=== PATIENT | female | born 1995 | race Caucasian/White ===

== ENCOUNTER 2020-02-20 09:50 | Emergency (ER) | payer OTHER, SELFPAY ==
[~2020-02-20] VITALS: Ht 162.6 cm; Wt 98.1 kg
--- NOTE | 2020-02-20 10:35 | REP ---
Right knee series: Six views. History: Trauma. Findings: Six views right knee demonstrate normal bones, joints, and soft tissues. A normal fabella is seen. There is no evidence of fracture, subluxation or joint effusion. Impression: Negative right knee radiographs. Electronically Signed by Glenn Chapman MD 02/20/2020 10:27 A
[2020-02-20 11:33] VITALS: BP 135/77
== END 2020-02-20 11:36 | disposition home or self-care (01) ==
LOC: M ED 09:50
DX: S80.01XA Contusion of right knee, initial encounter (principal); W55.89XA Other contact with other mammals, initial encounter; Y92.099 Unspecified place in other non-institutional residence as the place of occurrence of the external cause; Y93.9 Activity, unspecified; Y99.9 Unspecified external cause status; A69.20 Lyme disease, unspecified; Z88.5 Allergy status to narcotic agent

== ENCOUNTER → 2020-07-19 | Outpatient (CLI) | payer SELFPAY | LOC: M LABSMTC 13:09 | PROVIDERS: ATTEND Pediatrics | DX: Z20.828 Contact with and (suspected) exposure to other viral communicable diseases (principal) ==

== ENCOUNTER 2020-11-08 19:37 | Emergency (ER) | payer SELFPAY ==
[~2020-11-08] VITALS: Ht 165.1 cm; Wt 100.0 kg
--- NOTE | 2020-11-08 21:09 | REPVR ---
PROCEDURE INFORMATION: Exam: XR Left Hand Exam date and time: 11/08/2020 7:51 PM Age: 25 years old Clinical indication: Injury or trauma; Other: Stepped on by cow; Crushing; Hand; Left TECHNIQUE: Imaging protocol: XR Left hand. Views: 3 or more views. COMPARISON: No relevant prior studies available. FINDINGS: Bones/joints: No acute fracture or dislocation. Soft tissues: Soft tissue swelling. IMPRESSION: No acute fracture or dislocation. Electronically signed by: Heather Espinoza On 11/08/2020 21:09:22 PM
[2020-11-08 21:32] VITALS: BP 123/87
== END 2020-11-08 22:31 | disposition home or self-care (01) ==
LOC: M ED 19:37
DX: S69.92XA Unspecified injury of left wrist, hand and finger(s), initial encounter (principal); W23.0XXA Caught, crushed, jammed, or pinched between moving objects, initial encounter; Y92.89 Other specified places as the place of occurrence of the external cause; Y93.9 Activity, unspecified; Y99.0 Civilian activity done for income or pay; A69.20 Lyme disease, unspecified; Z88.5 Allergy status to narcotic agent

== ENCOUNTER 2021-12-15 00:12 | Inpatient (IN) | payer BC, SELFPAY ==
[~2021-12-15] VITALS: Ht 162.6 cm; Wt 119.2 kg
[2021-12-15 01:16] LABS: HEMATOCRIT 40.8 % (36.0-47.0); HEMOGLOBIN 12.8 g/dl (12.0-15.5); MEAN CORPUSCULAR HEMOGLOBIN 25.1 pg (27.0-33.0); MEAN CORPUSCULAR HGB CONC 31.4 g/dl (32.0-36.5); PLATELET COUNT, AUTOMATED 289 10^3/uL (150-450); WHITE BLOOD COUNT 8.6 10^3/uL (4.0-10.0)
[2021-12-15 01:42] LABS: AMPHETAMINES LEVEL URINE NEGATIVE (NEGATIVE); BARBITURATES URINE NEGATIVE (NEGATIVE); BENZODIAZEPINES URINE NEGATIVE (NEGATIVE); CANNABINOIDS URINE NEGATIVE (NEGATIVE); COCAINE METABOLITE URINE NEGATIVE (NEGATIVE); METHADONE URINE NEGATIVE (NEGATIVE); OPIATES URINE NEGATIVE (NEGATIVE); PHENCYCLIDINE URINE NEGATIVE (NEGATIVE)
[2021-12-15 01:45] LABS: HCG, SERUM QUALITATIVE NEGATIVE (NEGATIVE)
[2021-12-15 01:54] LABS: ALBUMIN 3.9 GM/DL (3.2-5.2); ALT/SGPT 20 U/L (12-78); BILIRUBIN,DIRECT < 0.1 MG/DL (0.0-0.2); BILIRUBIN,TOTAL 0.2 MG/DL (0.2-1.0); BLOOD UREA NITROGEN 11 MG/DL (7-18); CALCIUM LEVEL 9.2 MG/DL (8.5-10.1); CARBON DIOXIDE LEVEL 29 MEQ/L (21-32); CHLORIDE LEVEL 105 MEQ/L (98-107); CREATININE FOR GFR 0.82 MG/DL (0.55-1.30); ETHYL ALCOHOL (ETHANOL) 0.003 % (0.000-0.010); GLOMERULAR FILTRATION RATE > 60.0 (>60); GLUCOSE, FASTING 92 MG/DL (70-100); POTASSIUM SERUM 3.7 MEQ/L (3.5-5.1); SALICYLATE LEVEL < 1.7 MG/DL (5.0-30.0); SODIUM LEVEL 141 MEQ/L (136-145); TOTAL PROTEIN 7.4 GM/DL (6.4-8.2)
[2021-12-15 01:55] LABS: ACETAMINOPHEN LEVEL < 2.0 UG/ML (10.0-30.0)
[2021-12-15 01:57] LABS: RSV AMPLIFICATION NEGATIVE (NEGATIVE)
[2021-12-15] MEDS ORDERED: HOME MED LIST COMPLETE! XX SCH (02:30)
[2021-12-15] MEDS ORDERED: MOM 30ML SUSPENSION UDC PO PRN (02:35)
[2021-12-15] MEDS ORDERED: ACETAMINOPHEN TAB 650MG DOSE (2X325MG) PO PRN (02:35)
[2021-12-15] MEDS ORDERED: LORazepam 1 MG TAB PO PRN (02:35)
[2021-12-15] MEDS ORDERED: MAALOX 30 ML SUSP *UDC PO PRN (02:35)
[2021-12-15 05:23] VITALS: BP 122/72
[2021-12-15 16:23] VITALS: BP 120/67
[2021-12-15] MEDS: traZODone 50 MG TAB PO PRN (20:31)
[2021-12-15 20:33] LABS: FREE T4 0.94 NG/DL (0.76-1.46)
[2021-12-16 06:26] VITALS: BP 139/79
[2021-12-16] MEDS: FLUoxetine 10 MG CAP PO SCH (15:38)
[2021-12-16 16:29] VITALS: BP 124/66
[2021-12-17 07:07] VITALS: BP 117/64
[2021-12-17] MEDS: FLUoxetine 10 MG CAP PO SCH (08:34)
[2021-12-17] MEDS ORDERED: SENNA 8.6 MG TAB (SENOKOT) PO PRN (16:00)
[2021-12-17 19:21] VITALS: BP 139/80
[2021-12-17] MEDS: traZODone 50 MG TAB PO PRN (21:26)
[2021-12-18 06:47] VITALS: BP 125/65
[2021-12-18] MEDS: FLUoxetine 20MG CAP PO SCH (09:18)
[2021-12-18 18:12] VITALS: BP 145/65
[2021-12-18] MEDS: hydrOXYzine 50 MG TAB PO PRN (18:14)
[2021-12-18] MEDS: traZODone 50 MG TAB PO PRN (20:09)
[2021-12-19 06:45] VITALS: BP 120/68
[2021-12-19] MEDS: FLUoxetine 20MG CAP PO SCH (08:29)
[2021-12-19 18:07] VITALS: BP 130/75
[2021-12-19] MEDS: hydrOXYzine 50 MG TAB PO PRN (20:18)
[2021-12-20] MEDS ORDERED: FLUO20CA22 PO (09:24)
[2021-12-20] MEDS ORDERED: HYDR50TA70 PO (09:24)
[2021-12-20] MEDS: FLUoxetine 20MG CAP PO SCH (10:21)
== END 2021-12-20 11:16 | disposition home or self-care (01) | DRG 751 ==
LOC: M ED 00:12 → M ED INP 02:35 → M PSY 05:30
PROVIDERS: ADMIT Psychiatry & Neurology Psychiatry; ATTEND Psychiatry & Neurology Psychiatry
DX: F32.0 Major depressive disorder, single episode, mild (principal); R45.851 Suicidal ideations; F43.10 Post-traumatic stress disorder, unspecified; Z62.810 Personal history of physical and sexual abuse in childhood; Z88.5 Allergy status to narcotic agent

== ENCOUNTER 2022-03-16 13:43 | Emergency (ER) | payer BC ==
[~2022-03-16] VITALS: Ht 162.6 cm; Wt 112.8 kg
[~2022-03-16 13:43] MED LIST: FLUO20CA22 PO; HYDR50TA70 PO
[2022-03-16 15:38] LABS: BASO # 0.1 10^3/uL (0.0-0.2); BASO % 0.9 % (0.0-1.0); EOS # 0.1 10^3/uL (0.0-0.5); HEMOGLOBIN 13.1 g/dl (12.0-15.5); LYMPH # 1.9 10^3/uL (1.5-5.0); LYMPH % 26.7 % (24.0-44.0); MEAN CORPUSCULAR HEMOGLOBIN 25.6 pg (27.0-33.0); MEAN CORPUSCULAR VOLUME 80.1 fl (80.0-96.0); MONO # 0.5 10^3/uL (0.0-0.8); NEUTROPHILS # 4.4 10^3/uL (1.5-8.5); NEUTROPHILS % 63.1 % (36.0-66.0); PLATELET COUNT, AUTOMATED 271 10^3/uL (150-450); RED BLOOD COUNT 5.12 10^6/uL (4.00-5.40)
[2022-03-16 16:04] LABS: CK-MB VALUE MASS < 1.0 NG/ML (<3.6); CPK CREATINE PHOSPHOKINASE 74 U/L (26-192); MB/CK RELATIVE INDEX 1.35 (< OR =4)
[2022-03-16 16:14] LABS: BLOOD UREA NITROGEN 8 MG/DL (7-18); CALCIUM LEVEL 9.4 MG/DL (8.5-10.1); CARBON DIOXIDE LEVEL 25 MEQ/L (21-32); CHLORIDE LEVEL 108 MEQ/L (98-107); CREATININE FOR GFR 0.77 MG/DL (0.55-1.30); GLOMERULAR FILTRATION RATE > 60.0 (>60); GLUCOSE, FASTING 89 MG/DL (70-100); SODIUM LEVEL 139 MEQ/L (136-145)
[2022-03-16 16:17] LABS: AMPHETAMINES LEVEL URINE NEGATIVE (NEGATIVE); BARBITURATES URINE NEGATIVE (NEGATIVE); BENZODIAZEPINES URINE NEGATIVE (NEGATIVE); CANNABINOIDS URINE NEGATIVE (NEGATIVE); COCAINE METABOLITE URINE NEGATIVE (NEGATIVE); METHADONE URINE NEGATIVE (NEGATIVE); OPIATES URINE NEGATIVE (NEGATIVE); PHENCYCLIDINE URINE NEGATIVE (NEGATIVE)
[2022-03-16 17:50] VITALS: BP 122/66
== END 2022-03-16 18:04 | disposition home or self-care (01) ==
LOC: M ED 13:43
DX: G47.00 Insomnia, unspecified (principal); R53.83 Other fatigue; R25.9 Unspecified abnormal involuntary movements; R11.2 Nausea with vomiting, unspecified; R19.7 Diarrhea, unspecified; Z86.19 Personal history of other infectious and parasitic diseases; Z90.89 Acquired absence of other organs; Z88.6 Allergy status to analgesic agent; Z79.899 Other long term (current) drug therapy